=== PATIENT | female | born 1995 | race African-American/Black ===

== ENCOUNTER 2021-07-08 22:04 | Emergency (ER) | payer OTHER ==
[~2021-07-08] VITALS: Ht 162.6 cm; Wt 84.8 kg
[2021-07-08 22:13] VITALS: BP 156/94
== END 2021-07-09 00:18 | disposition home or self-care (01) ==
LOC: ER 22:04
DX: S61.212A Laceration without foreign body of right middle finger without damage to nail, initial encounter (principal); F41.9 Anxiety disorder, unspecified; F32.9 Major depressive disorder, single episode, unspecified; F12.90 Cannabis use, unspecified, uncomplicated; W25.XXXA Contact with sharp glass, initial encounter; Y93.89 Activity, other specified; Y92.89 Other specified places as the place of occurrence of the external cause; Y99.8 Other external cause status